=== PATIENT | male | born 1985 | race African-American/Black ===

== ENCOUNTER 2024-04-27 20:25 | Emergency (ER) | payer BC, MEDICAID ==
[~2024-04-27] VITALS: Ht 193 cm; Wt 109.0 kg
[2024-04-27 20:29] VITALS: O2SAT 99
[2024-04-27 21:20] VITALS: BP 141/85; PULSE 90; RESP 16; TEMP 36.66960; O2SAT 100
[2024-04-27] MEDS: METRONIDAZOLE 500MG TABLET PO ONE (21:20)
== END 2024-04-27 21:45 | disposition home or self-care (01) ==
LOC: ER 20:25
DX: A59.9 Trichomoniasis, unspecified (principal); Z20.2 Contact with and (suspected) exposure to infections with a predominantly sexual mode of transmission
CPT/HCPCS: 99283

== ENCOUNTER 2025-02-16 14:36 | Emergency (ER) | payer MEDICAID ==
[~2025-02-16] VITALS: Ht 193 cm; Wt 113.5 kg
[2025-02-16 14:49] VITALS: O2SAT 98
[2025-02-16 18:29] LABS: BASOPHILS % 0.5 % (0.0-2.0); EOSINOPHILS % 2.8 % (0.0-5.0); HEMATOCRIT. 43.3 % (42.0-52.0); HEMOGLOBIN. 14.6 g/dL (14.0-18.0); LYMPHOCYTES % 39.7 % (20.0-50.0); MEAN PLATELET VOLUME 9.7 fl (7.4-10.4); MONOCYTES % 10.1 % (2.0-8.0); NEUTROPHILS % 46.9 % (40.0-76.0); PLATELET 314 x1000/uL (130-400); RED BLOOD CELL COUNT 4.97 mill/uL (4.7-6.1); RED CELL DISTRIBUTION WIDTH 13.7 % (11.6-14.6)
[2025-02-16 18:45] LABS: CREATININE 1.2 mg/dL (0.6-1.3)
[2025-02-16 18:46] LABS: TROPONIN I HIGH SENSITIVITY 6 ng/L (3.0-53); UREA NITROGEN BLOOD 14 mg/dL (9-23)
[2025-02-16 18:47] LABS: ASPARTATE AMINOTRANSFERASE 20 IU/L (<34)
[2025-02-16 18:48] LABS: BILIRUBIN DIRECT < 0.1 mg/dL (<=3.0); BILIRUBIN TOTAL 0.3 mg/dL (0.1-1.0); PROTEIN TOTAL 5.6 g/dL (6.0-8.3)
[2025-02-16 18:50] LABS: INR 0.9
[2025-02-16 19:14] LABS: CLARITY URINE CLEAR (CLEAR); COLOR URINE YELLOW (YELLOW); GLUCOSE URINE NEGATIVE (NEGATIVE); KETONES URINE NEGATIVE (NEGATIVE); LEUKOCYTE ESTERASE URINE NEGATIVE (NEGATIVE); NITRITE URINE NEGATIVE (NEGATIVE); OCCULT BLOOD URINE NEGATIVE (NEGATIVE); PH URINE 6.5 (4.5-8.0); PROTEIN URINE 4+ (NEGATIVE); SPECIFIC GRAVITY URINE 1.016 (1.005-1.030); UROBILINOGEN URINE 0.2 E.U./dL (0.2-1.0)
[2025-02-16 19:25] LABS: RBC URINE 0-2 /hpf (0-2); SQUAMOUS EPITHELIAL CELL URINE 1+ /lpf (RARE/1+); WBC URINE 0-2 /hpf (0-2)
[2025-02-16 19:26] LABS: BACTERIA URINE TRACE; HYALINE CASTS URINE 0-5 /lpf
[2025-02-16] MEDS ORDERED: POTA-354 MT (21:49)
[2025-02-16] MEDS ORDERED: FURO20TA4 MT (21:49)
[2025-02-16 22:05] VITALS: BP 130/84; PULSE 74; RESP 16; TEMP 36.9; O2SAT 99
== END 2025-02-16 22:05 | disposition home or self-care (01) ==
LOC: ER 14:36
DX: N04.9 Nephrotic syndrome with unspecified morphologic changes (principal); R06.02 Shortness of breath; Z79.899 Other long term (current) drug therapy
CPT/HCPCS: 36415; 71045; 80048; 80076; 81003; 83880; 84484; 85025; 93005; 99285